=== PATIENT | female | born 1960 | race Caucasian/White ===

== ENCOUNTER 2022-01-01 02:28 | Emergency (ER) | payer OTHER ==
[~2022-01-01] VITALS: Ht 137.2 cm; Wt 81.6 kg
[2022-01-01 03:19] VITALS: BP 146/98
[2022-01-01 03:36] LABS: BILIRUBIN,URINE SMALL (NEGATIVE); COLOR,URINE RED (YELLOW); LEUKOCYTE ESTERASE ,URINE LARGE (NEGATIVE); NITRITE, URINE POSITIVE (NEGATIVE); PROTEIN,URINE 100 mg/dl (NEGATIVE); UGLUCOSE NEGATIVE (NEGATIVE); UROBILINOGEN,URINE 0.2 EU/dL (0.2)
[2022-01-01] MEDS ORDERED: NITR-84 PO (04:09)
[2022-01-01] MEDS ORDERED: PHEN-704 PO (04:09)
[2022-01-01] MEDS ORDERED: NITROFURANTOIN/MONOHYDRATE MACROCRYSTALS 100 MG CAPSULE ONE (04:15)
[2022-01-01] MEDS ORDERED: PHENAZOPYRIDINE HCL 200 MG TABLET ONE (04:15)
--- NOTE | 2022-01-01 04:20 | NUR ---
Patient discharged to home in stable condition. Written and verbal after care instructions given. Patient verbalizes understanding of instruction. Pt ambulatory with a steady gait
[2022-01-01] MEDS ORDERED: NITROFURANTOIN/MONOHYDRATE MACROCRYSTALS 100 MG CAPSULE PO ONE (04:30)
[2022-01-01] MEDS ORDERED: PHENAZOPYRIDINE HCL 200 MG TABLET PO ONE (04:30)
[2022-01-01 08:27] LABS: BACTERIA,URINE Moderate /HPF (None Seen); SQUAMOUS EPITHELIAL CELL,UR Moderate /HPF (None Seen); WBC,URINE 21-50 /HPF (0-3)
== END 2022-01-01 04:20 | disposition home or self-care (01) ==
LOC: ER 02:33
DX: N30.90 Cystitis, unspecified without hematuria (principal); I10 Essential (primary) hypertension
CPT/HCPCS: 81001; 87086-TC; 87186-TC

== ENCOUNTER 2022-08-21 11:28 | Emergency (ER) | payer OTHER ==
[~2022-08-21] VITALS: Ht 162.6 cm; Wt 81.6 kg
[~2022-08-21 11:28] MED LIST: NITR-84 PO; PHEN-704 PO
[2022-08-21] MEDS ORDERED: GUAIFENESIN/D-METHORPHAN HB 5 ML UDC ONE (11:50)
--- NOTE | 2022-08-21 11:53 | NUR ---
ROBITUSSIN PO GIVEN TO PT
--- NOTE | 2022-08-21 11:54 | NUR ---
KNUCKLE BENDER AT BEDSIDE FOR XRAY
[2022-08-21] MEDS ORDERED: GUAIFENESIN/D-METHORPHAN HB 5 ML UDC PO ONE (12:00)
[2022-08-21] MEDS ORDERED: GUAI1TBM19 PO (12:32)
[2022-08-21] MEDS ORDERED: BENZ-13 PO (12:32)
[2022-08-21] MEDS ORDERED: PSEU120T83 PO (12:32)
[2022-08-21 12:55] VITALS: BP 134/71
--- NOTE | 2022-08-21 12:55 | NUR ---
Patient discharged to home in stable condition. Written and verbal after care instructions given. Patient verbalizes understanding of instruction.
== END 2022-08-21 12:55 | disposition home or self-care (01) ==
LOC: ER 11:31
DX: R05.9 Cough, unspecified (principal); I10 Essential (primary) hypertension; Z79.899 Other long term (current) drug therapy
CPT/HCPCS: 71045-TC